=== PATIENT | male | born 2000 | race Caucasian/White ===

== ENCOUNTER 2024-12-15 16:21 | Emergency (ER) | payer OTHER ==
[~2024-12-15] VITALS: Ht 190.5 cm; Wt 77.3 kg
[2024-12-15 16:27] VITALS: O2SAT 100
[2024-12-15 16:31] VITALS: BP 147/84; PULSE 98; RESP 16; TEMP 36.9; O2SAT 99
[2024-12-15 18:00] LABS: CLARITY URINE CLEAR (CLEAR); COLOR URINE YELLOW (YELLOW); GLUCOSE URINE NEGATIVE (NEGATIVE); KETONES URINE NEGATIVE (NEGATIVE); LEUKOCYTE ESTERASE URINE NEGATIVE (NEGATIVE); NITRITE URINE NEGATIVE (NEGATIVE); OCCULT BLOOD URINE NEGATIVE (NEGATIVE); PH URINE 6.5 (4.5-8.0); PROTEIN URINE NEGATIVE (NEGATIVE); SPECIFIC GRAVITY URINE 1.016 (1.005-1.030); UROBILINOGEN URINE 0.2 E.U./dL (0.2-1.0)
[2024-12-15] MEDS ORDERED: DOXY100T28 MT (19:06)
[2024-12-15] MEDS: LIDOCAINE HCL 1% 20ML VIAL INFIL ONE (19:09)
[2024-12-15] MEDS: CEFTRIAXONE SODIUM 500MG VIAL IM ONE (19:09)
== END 2024-12-15 19:15 | disposition home or self-care (01) ==
LOC: ER 16:21
DX: M25.562 Pain in left knee (principal); I10 Essential (primary) hypertension
CPT/HCPCS: 87491; 87591; 81003; 96372; 99283; J0696; J3490; Z7610 ×4; A4606

== ENCOUNTER 2025-03-09 16:26 | Emergency (ER) | payer SELFPAY ==
[~2025-03-09] VITALS: Ht 193 cm; Wt 77.0 kg
[~2025-03-09 16:26] MED LIST: DOXY100T28 MT
[2025-03-09 16:39] VITALS: TEMP 37.2; O2SAT 99
[2025-03-09] MEDS: CEFTRIAXONE SODIUM 500MG VIAL IM ONE (17:42)
[2025-03-09] MEDS: LIDOCAINE HCL/PF 1% 10 MG/ML 5ML VIAL INFIL ONE (17:43)
[2025-03-09 17:50] LABS: CLARITY URINE CLEAR (CLEAR); COLOR URINE YELLOW (YELLOW); GLUCOSE URINE NEGATIVE (NEGATIVE); KETONES URINE 3+ (NEGATIVE); LEUKOCYTE ESTERASE URINE 1+ (NEGATIVE); NITRITE URINE NEGATIVE (NEGATIVE); OCCULT BLOOD URINE 1+ (NEGATIVE); PH URINE 5.5 (4.5-8.0); PROTEIN URINE NEGATIVE (NEGATIVE); SPECIFIC GRAVITY URINE 1.016 (1.005-1.030)
[2025-03-09] MEDS ORDERED: DOXY100C5 MT (17:54)
[2025-03-09 18:00] LABS: BACTERIA URINE NONE SEEN; SQUAMOUS EPITHELIAL CELL URINE FEW /lpf (RARE/1+); WBC URINE 0-2 /hpf (0-2)
[2025-03-09 18:01] VITALS: BP 153/92; PULSE 62; RESP 18; O2SAT 97
[2025-03-12 06:12] LABS: CHLAMYDIA TRACHOMATIS NAA Negative (Negative); NEISSERIA GONORRHOEAE NAA Positive (Negative)
== END 2025-03-09 18:03 | disposition home or self-care (01) ==
LOC: ER 16:26
DX: Z11.3 Encounter for screening for infections with a predominantly sexual mode of transmission (principal); R36.9 Urethral discharge, unspecified
CPT/HCPCS: 87491; 87591; 81003; 96372; 99283; J0696; J2003; Z7610

== ENCOUNTER 2025-05-06 11:48 | Emergency (ER) | payer MEDICAID ==
[~2025-05-06] VITALS: Ht 193 cm; Wt 81.0 kg
[~2025-05-06 11:48] MED LIST changes: +DOXY100C5 MT
[2025-05-06 11:53] VITALS: O2SAT 99
[2025-05-06] MEDS ORDERED: IBUP-2028 MT (13:32)
[2025-05-06 14:06] VITALS: BP 133/74; PULSE 77; RESP 18; TEMP 36.7; O2SAT 100
== END 2025-05-06 14:08 | disposition home or self-care (01) ==
LOC: ER 11:48
DX: M79.672 Pain in left foot (principal); I10 Essential (primary) hypertension; Z79.899 Other long term (current) drug therapy
CPT/HCPCS: 73610; 99283

== ENCOUNTER 2025-05-09 11:40 | Emergency (ER) | payer MEDICAID ==
[~2025-05-09] VITALS: Ht 193 cm; Wt 77.0 kg
[~2025-05-09 11:40] MED LIST changes: +IBUP-2028 MT
[2025-05-09 11:42] VITALS: O2SAT 99
[2025-05-09 12:48] VITALS: BP 125/83; PULSE 74; RESP 16; TEMP 36.9; O2SAT 100
== END 2025-05-09 12:50 | disposition home or self-care (01) ==
LOC: ER 11:40
DX: S40.012A Contusion of left shoulder, initial encounter (principal); W18.2XXA Fall in (into) shower or empty bathtub, initial encounter; Y93.E1 Activity, personal bathing and showering; Y92.89 Other specified places as the place of occurrence of the external cause; Y99.8 Other external cause status
CPT/HCPCS: 73030; 99283; Z7610